=== PATIENT | male | born 1960 | race Caucasian/White ===

== ENCOUNTER → 2016-06-16 | Outpatient (CLI) | payer BC | LOC: GMAB 10:35 | PROVIDERS: ATTEND Family Medicine | DX: Z00.00 Encounter for general adult medical examination without abnormal findings (principal); R97.20 Elevated prostate specific antigen [PSA] ==

== ENCOUNTER → 2016-06-17 | Outpatient (CLI) | payer BC | END | disposition home or self-care (01) | LOC: GMAB 17:58 | PROVIDERS: ATTEND Family Medicine | DX: R06.02 Shortness of breath (principal) ==

== ENCOUNTER → 2016-12-22 | Outpatient (CLI) | payer BC | END | disposition home or self-care (01) | LOC: GMAB 10:52 | PROVIDERS: ATTEND Family Medicine | DX: R97.20 Elevated prostate specific antigen [PSA] (principal); E29.1 Testicular hypofunction ==

== ENCOUNTER → 2017-01-25 | Outpatient (CLI) | payer BC | END | disposition home or self-care (01) | LOC: GMAB 11:15 | PROVIDERS: ATTEND Family Medicine | DX: R06.02 Shortness of breath (principal) ==

== ENCOUNTER → 2017-02-05 | Outpatient (CLI) | payer BC ==
--- NOTE | 2017-02-05 12:35 | US ---
EXAM DESCRIPTION: Carotid Duplex: Ultrasound. CLINICAL HISTORY: STENOSIS RT CAROTID ARTERY COMPARISON: None. TECHNIQUE: Transcutaneous scanning utilizing 2-dimensional and Doppler modes to evaluate the bilateral carotid systems and vertebral arteries. Percentage of diameter of stenosis or no stenosis recorded will be based upon NASCET criteria. FINDINGS: Peak systolic/end diastolic (CM-Sec) CCA Right 109/19 Left 111/10. ICA Right proximal 70/18, mid 97/30. Left proximal 50/5, mid 61/16. Vertebral Right 33/6 Left 53/5. ECA (PS Only) Right 105 left 54. ICA/CCA peak systolic ratio: Right 0.9 Left 0.5 ICA/CCA end diastolic ratio: Right 1.6 Left 1.6 Vertebral arteries: antegrade flow. Comments: 21% area stenosis in the proximal right ICA. 9% area stenosis in the right CCA bulb. Spectral broadening and color turbulent flow in the proximal right ICA with calcified plaque. IMPRESSION: 1. Doppler evaluation of the bilateral carotid systems and vertebral arteries shows no hemodynamically significant stenoses. 2. No significant amount of plaque seen in the carotid arteries bilaterally. Bilateral vertebral arteries showed antegrade-cephalad flow. Electronically signed by: Eddie Samuel MD 02/05/2017 12:34 PM CDT
== END | disposition home or self-care (01) ==
LOC: US 08:55
PROVIDERS: ATTEND Family Medicine
DX: I65.21 Occlusion and stenosis of right carotid artery (principal)

== ENCOUNTER → 2018-01-17 | Outpatient (CLI) | payer BC ==
--- NOTE | 2018-01-17 11:27 | CT ---
EXAM DESCRIPTION: Abdomen/Pelvis w/wo Contrast: Computed Tomography. CLINICAL HISTORY: DIVERTICULITIS COMPARISON: CT abdomen without contrast 10/27/2006. TECHNIQUE: Spiral-axial scans at 5 x 5 mm intervals through the abdomen and pelvis before and after standard dose nonionic IV contrast. No oral contrast. Coronal and sagittal 2.0 mm reconstructions. 5 mm Delayed helical-axial scans, liver through the pubic symphysis. No adverse reactions. Total Exam DLP 4525.91 mGy - cm. This exam was performed according to our departmental CT dose-optimization program which includes automated exposure control, adjustment of the mA and/or kV according to patient size and/or use of iterative reconstruction technique; to reduce radiation dose to as low as reasonably achievable (ALARA). FINDINGS: Lung bases and pleura: Scarring or atelectasis lateral left base. Minimal bilateral pleural thickening. Coronary artery calcifications. Liver, Stomach, Spleen, Adrenal Glands: Decreased density of the liver with long axis of right lobe 21.2 cm. Multiple stable small low-density lesions, not enhancing. The larger lesions are cystic. Small sliding hiatal hernia. Other solid organs are negative. Pancreas, Gallbladder, Ducts: Surgical clips in the gallbladder fossa. No fluid. Duct not dilated. Pancreas negative. Kidneys and Ureters: 3.7 mm radiodense stone in the lower collecting system of the right kidney, slightly larger since the prior study with no hydronephrosis. No stones in the ureters or left kidney with no obstruction. No perinephric or periureteral edema. Mesentery: Fatty stranding and fascial thickening around inflammation in the sigmoid. No free fluid or free air. Aorta: Minimal to moderate atherosclerotic calcification particularly at the origins of the major branch vessels. No aneurysms. Small Bowel: Negative. Terminal Ileum/Cecum: Normal caliber. Retrocecal appendix is normal caliber. Normal density of the surrounding fat. Colon: Wall thickening in the proximal sigmoid which is posterior to the left lower anterior abdominal wall. Similar location on the prior study in 2006. Thickened radiodense diverticula. Serosal margins are indistinct with increased pericolonic fatty stranding. No obstruction proximally. No fluid collections. Diverticula also again noted from the splenic flexure to the rectum. Pelvic Organs: Enlarged prostate gland measuring 6.2 x 4.6 cm at their greatest transverse diameter. Impressing on the base of the urinary bladder and the pelvic sidewalls. Bladder not distended. No free fluid or separate mass. Spine and Bony Pelvis: Spondylosis thoracic spine. Mild thoracolumbar levoscoliosis. Abdominal Wall/Back Soft Tissues: Fatty diastases at the umbilicus but not containing bowel. Bilateral small fatty inguinal hernias not containing bowel. IMPRESSION: 1. Uncomplicated diverticulitis in the proximal sigmoid colon similar location to previous event in 2007. Diverticulosis more proximal. No free air or free fluid. 2. 3.7 mm nonobstructing radiodense stone in the lower collecting system of the right kidney slightly enlarged since the prior study. 3. Enlarged prostate gland impressing on the base of the urinary bladder, slightly enlarged since the prior study. Consider correlation with serial PSA monitoring. 4. Fatty enlarged liver with multiple cysts, stable since the prior study. Small sliding hiatal hernia. Stable fatty diastases without bowel hernia in the umbilicus and small bilateral fatty inguinal hernias not containing bowel. Atelectasis or scarring in the left lung base is new since the prior study. CRITICAL COMMUNICATION: The critical value was discussed directly by phone with Dr. Constantino Michele at approximately 1100 hours, on January 17, 2018 Electronically signed by: Eddie Samuel MD 01/17/2018 11:25 AM CDT
== END ==
LOC: LAB.O 08:59
PROVIDERS: ATTEND Family Medicine
DX: K57.32 Diverticulitis of large intestine without perforation or abscess without bleeding (principal); N20.0 Calculus of kidney; N40.0 Benign prostatic hyperplasia without lower urinary tract symptoms; K76.0 Fatty (change of) liver, not elsewhere classified; K44.9 Diaphragmatic hernia without obstruction or gangrene

== ENCOUNTER → 2018-05-30 | Outpatient (CLI) | payer BC | LOC: GMAE 14:17 | PROVIDERS: ATTEND Family Medicine | DX: E03.8 Other specified hypothyroidism (principal); Z12.5 Encounter for screening for malignant neoplasm of prostate ==

== ENCOUNTER → 2018-05-31 | Outpatient (CLI) | payer BC | LOC: GMAE 17:33 | PROVIDERS: ATTEND Family Medicine | DX: M79.10 Myalgia, unspecified site (principal) ==

== ENCOUNTER → 2018-08-30 | Outpatient (CLI) | payer BC | LOC: GMAE 12:39 | PROVIDERS: ATTEND Family Medicine | DX: Z00.01 Encounter for general adult medical examination with abnormal findings (principal) ==

== ENCOUNTER 2019-08-22 22:02 | Emergency (ER) | payer BC ==
[2019-08-22] MEDS ORDERED: FUROSEMIDE INJ 40 MG/4 ML VIAL IV ONE (22:28)
--- NOTE | 2019-08-22 22:32 | ED.PDOC ---
History of Present Illness - General Chief Complaint: Cardiovascular Problem Stated Complaint: slow heart rate, swelling in legs Time Seen by Provider: 08/22/19 22:27 Additional Information: Patient is a 66-year-old male who presents to the ED with a chief complaint of bradycardia and leg swelling. Indicates that since COVID lockdown 1 month ago patient has gained 20 pounds working from home. He says that he now has a very large legs which is unusual for him. Patient denies orthopnea or shortness of breath or chest pain. He states his pressure is typically very well controlled with lisinopril, however, after patient gained these 20 pounds he has noted his systolic pressure is up often in the 170s. Lastly, patient takes his pulse at home and noted that over the past few days his heart rate has been in the low 40s, every once in a while dropping down into the high 30s. Patient denies taking a beta-jassi. He notes that his father received a pacemaker at approximately the same age patient is now for a very low heart rate. Patient sees Dr. Patel, for with elderly sitter, who did a stress test on him approximately 3 months ago that was baseline for patient. Patient indicates he has been told he has mild CAD with 50% blockage but nothing that extendable. No other complaints. - History of Present Illness Allergies/Adverse Reactions: Allergies NO KNOWN ALLERGY Allergy (Verified 08/22/19 22:19) Home Medications: Ambulatory Orders Furosemide [Lasix] 20 mg PO BID #60 tab 08/22/19 Potassium Chloride Tab [Micro-K] 10 meq PO QDAC #30 tab 08/22/19 Review of Systems - Review of Systems Constitutional: States: no symptoms reported. Denies: chills, fever Respiratory: States: no symptoms reported. Denies: cough, orthopnea, short of breath Cardiology: States: see HPI, edema. Denies: chest pain Gastrointestinal/Abdominal: Denies: abdominal pain, nausea Musculoskeletal: States: no symptoms reported Skin: Denies: rash Neurological: States: no symptoms reported All other Systems: Reviewed and Negative Family Medical History - Family History Father Family History: Unknown Physical Exam - Physical Exam General Appearance: Alert, No apparent distress, Well Developed, Well Nourished Neck: non-tender, supple, normal inspection Respiratory: chest non-tender, lungs clear, normal breath sounds, no respiratory distress Cardiovascular/Chest: no gallop, no JVD, no murmur, bradycardia Gastrointestinal/Abdominal: normal bowel sounds, non tender, soft, no organomegaly Extremity: pedal edema - 3+ bilateral pedal edema 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 No respiratory symptoms to suggest pulmonary edema . EKG is unremarkable except for sinus bradycardia. With respect to the bradycardia patient is completely asymptomatic and we discussed that his heart rate in the 40s is an outpatient evaluation with his elderly sitter. Pt to call Dr. Patel tomorrow to make an appointment for later in the week. I will discharge patient with Lasix and potassium and patient to return to the ED if his symptoms worsen. Vital signs stable, patient is NAD and looks clinically well and I believe is safe for discharge with outpatient follow-up. Follow-up instructions, discharge instructions and return to ED precautions discussed with patient. Patient voices understanding and willingness to comply with instructions. All laboratory and radiographic results have been discussed with the patient, and all questions answered. Patient is happy with plan. EKG: Sinus bradycardia, rate 45, prolonged MA, normal axis, normal ST segments, nonspecific T wave changes. Negative STEMI. Read by Harish Dye MD - Results/Orders Results/Orders: 08/22/19 22:20 EKG Assessment ONCE 08/22/19 22:27 IV:Start .ONCE EKG Assessment ONCE Chest,1 View [RAD] Stat 08/22/19 22:30 EKG STAT Laboratory Results - last 24 hr 08/22/19 08/22/19 08/22/19 22:35 22:35 22:35 WBC 6.4 RBC 3.92 L Hgb 11.9 L Hct 35.5 L MCV 90.6 MCH 30.3 MCHC 33.5 RDW 14.5 Plt Count 182 MPV 8.8 Absolute Neuts (auto) 2.60 Absolute Lymphs (auto) 2.90 Absolute Monos (auto) 0.70 Absolute Eos (auto) 0.20 Absolute Basos (auto) 0.00 Neutrophils % 40.5 L Lymphocytes % 46.2 Monocytes % 10.4 H Eosinophils % 2.7 Basophils % 0.2 Sodium 137 Potassium 4.1 Chloride 108 Carbon Dioxide 24 Anion Gap 9.1 L BUN 22 H Creatinine 1.32 H BUN/Creatinine Ratio 16.7 Random Glucose 87 Serum Osmolality 276.5 Calcium 8.3 L Total Bilirubin 0.7 AST 30 ALT 32 Alkaline Phosphatase 72 Troponin I < 0.02 B-Natriuretic Peptide 214.0 H* Serum Total Protein 5.9 L Albumin 3.4 Globulin 2.5 Albumin/Globulin Ratio 1.4 Departure - Departure Clinical Impression: Peripheral edema, Sinus bradycardia Time of Disposition: 23:26 Disposition: Discharge to Home or Self Care Condition: Good Departure Forms: ED Discharge - Pt. Copy, Patient Portal Self Enrollment Instructions: Swelling, Bradycardia Diet: low salt diet Activity: walking as tolerated Referrals: RADHA ABDI MD [Primary Care Provider] - 1-5 Days Prescriptions: Furosemide [Lasix] 20 mg PO BID #60 tab Potassium Chloride Tab [Micro-K] 10 meq PO QDAC #30 tab Home Medications: Ambulatory Orders Furosemide [Lasix] 20 mg PO BID #60 tab 08/22/19 Potassium Chloride Tab [Micro-K] 10 meq PO QDAC #30 tab 08/22/19
--- NOTE | 2019-08-22 23:26 | RAD ---
EXAM DESCRIPTION: Chest,1 View CLINICAL HISTORY: 58 years Male edema COMPARISON: None. FINDINGS: The cardiomediastinal silhouette appears unremarkable for technique. Atherosclerotic calcifications in the thoracic aorta. The left lung base is suboptimally evaluated secondary to overlying soft tissues. No definite consolidating infiltrates or pleural effusions. No pneumothorax. Postsurgical changes in the left shoulder. IMPRESSION: No acute abnormality is identified. PA and lateral chest x-ray could be obtained to better evaluate if indicated. Electronically signed by: Keron Montgomery MD 08/22/2019 11:24 PM CDT
[2019-08-22 23:36] VITALS: BP 139/73; TEMP 97.7; O2SAT 98
== END 2019-08-22 22:40 | disposition home or self-care (01) ==
LOC: ER 22:02
DX: R60.9 Edema, unspecified (principal); R00.1 Bradycardia, unspecified; I10 Essential (primary) hypertension; I25.10 Atherosclerotic heart disease of native coronary artery without angina pectoris; Z79.899 Other long term (current) drug therapy
CPT/HCPCS: 36415; 71045; 80053; 83880; 84484; 85025; 93005; J1940

== ENCOUNTER → 2019-08-24 | Outpatient (CLI) | payer BC | DX: R00.1 Bradycardia, unspecified (principal) ==

== ENCOUNTER → 2019-09-04 | Outpatient (CLI) | payer BC | LOC: ECHO 12:54 | PROVIDERS: ATTEND Nuclear Medicine Nuclear Cardiology | DX: R06.09 Other forms of dyspnea (principal); I51.7 Cardiomegaly ==

== ENCOUNTER → 2019-10-16 | Outpatient (CLI) | payer BC | LOC: GMAE 11:18 | PROVIDERS: ATTEND Family Medicine | DX: E03.8 Other specified hypothyroidism (principal) ==

== ENCOUNTER → 2019-10-18 | Outpatient (CLI) | payer BC | LOC: GMAE 14:20 | PROVIDERS: ATTEND Family Medicine | DX: R97.20 Elevated prostate specific antigen [PSA] (principal) ==